=== PATIENT | female | born 1995 | race Caucasian/White ===

== ENCOUNTER → 2018-11-15 14:25 | Emergency (ER) | payer BC, MEDICAID ==
[~2018-11-15 14:25] MED LIST: Sucralfate SUSP 1 GM/10 ml 10 ML UDC PO ONE
--- NOTE | 2018-11-15 18:15 | ED ---
Complex/Multi-Sys Presentation - HPI Summary HPI Summary: Patient is a 23 y/o F presenting to ED with complaints of chest pain for the past three days. Chest pain is described as intense and is rated 8/10. She states that chest pain has been steady and is aggravated by eating/drinking. Chest pain is midsternal with radiation downwards towards epigastric area and wraps around her ribs. When pain is severe, patient notes some associated SOB. Vomiting is denied but she notes that she has not had a bowel movement in the past three days. Patient reports that this presentation of Sx is dissimilar to her GERD, stating that she has never had similar episodes of such pain. Patient is concerned that Sx have persisted. She additionally notes onset of sore throat today and reports minimal PO intake today. PMHx of GERD, hiatal hernia, fibromyalgia, PTSD, hypermobility syndrome. Patient had a cardiac workup done, with Dr. Altman in [place], echo appeared to be normal. FMHx of cardiac disease, grandmother had [place]. Patient is on omperazole 20 mg daily, gabapentin, doxazosin, and takes tumeric. Patient had an endoscopy and colonoscopy with Dr. Erin Neumann in [place] 11/03/17, patient was noted to have erythematous mucous in the antrum and was advised not to take NSAIDS. Patient notes that she had been prescribed meloxicam by a pain clinic that she does not follow with anymore. 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 PMHx of internal hemorrhoids is noted as well. Patient is on control and has been bleeding on and off for the past few months, which the patient relates to a recent control dosage change. PMHx of self-harm is noted as well, she denies SI/HI. On triage, pain is rated 8/10. Home medications and allergies are reviewed. Pt chose to come from [facility], because this hospital was recommended to her. She has an aunt in [place] as well. Pt drove herself here. 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 Pt carries a notebook binder with reports of all of her medical studies. - History Of Current Complaint Chief Complaint: EDChestPainROMI Hx Obtained From: Patient Onset/Duration: Lasting Days - three, Still Present Timing: Constant, Days - three Severity Currently: Severe Location: Pain At: - midsternal chest Aggravating Factor(s): eating and drinking Alleviating Factor(s): nothing Associated Signs And Symptoms: Positive: SOB, Chest Pain, Other - positive - constipation, sore throat, decreased PO intake; negative - SI/HI. Negative: Vomiting - Allergies/Home Medications Allergies/Adverse Reactions: Allergies Allergy/AdvReac Type Severity Reaction Status Date / Time amoxicillin [From Augmentin] Allergy Hives Verified 11/15/18 14:30 clavulanic acid Allergy Hives Verified 11/15/18 14:30 [From Augmentin] Home Medications: Home Medications Control 0 mg PO DAILY 11/15/18 [History Confirmed 11/15/18] Doxazosin TAB* 4 mg PO BEDTIME 11/15/18 [History Confirmed 11/15/18] Gabapentin CAP(*) 900 mg PO TID 11/15/18 [History Confirmed 11/15/18] LevoCETirizine TAB (NF) 15 mg PO DAILY 11/15/18 [History Confirmed 11/15/18] Melatonin 5 mg PO DAILY 11/15/18 [History Confirmed 11/15/18] Omeprazole 20 mg PO DAILY 11/15/18 [History Confirmed 11/15/18] Xanax TAB* 0.25 mg PO DAILY 11/15/18 [History Confirmed 11/15/18] Zanaflex TAB* 4 mg PO DAILY 11/15/18 [History Confirmed 11/15/18] traZODone TAB* 50 mg PO BID PRN 11/15/18 [History Confirmed 11/15/18] PMH/Surg Hx/FS Hx/Imm Hx Previously Healthy: No GI History: Reports: Hx Gastroesophageal Reflux Disease, Hx Hiatal Hernia History: Reports: Other Problems/Disorders - internal hemorrhoids Musculoskeletal History: Reports: Hx Fibromyalgia, Other Musculoskeletal History - hypermobility syndrome Psychiatric History: Reports: Hx Post Traumatic Stress Disorder, Other Psychiatric Issues/Disorders - Hx of self harm - Surgical History Surgery Procedure, Year, and Place: none Infectious Disease History: No Infectious Disease History: Denies: Traveled Outside the [place] in Last 30 Days - Family History Known Family History: Positive: Cardiac Disease - Social History Alcohol Use: None Substance Use Type: Reports: None Smoking Status (MU): Never Smoked Tobacco Review of Systems Constitutional: Negative Positive: Sore Throat Positive: Chest Pain Positive: Shortness Of Breath Gastrointestinal: Other - positive - decreased PO intake Positive: Other - constipation . Negative: Vomiting Positive: no symptoms reported Positive: Myalgia - always Skin: Negative Neurological: Negative Psychological: Other - negative - SI/HI Positive: Anxious All Other Systems Reviewed And Are Negative: Yes Physical Exam - Summary Physical Exam Summary: Appearance: Ill-appearing, moderate pain distress, well-nourished Skin: Warm, color reflects adequate perfusion, dry; multiple well-healed abdominal scars noted representing previous cutting episodes Head: Normal Head/Face inspection, atraumatic Eyes: Conjunctiva clear ENT: Normal inspection Neck: Supple, no nodes, no JVD Respiratory: Lungs clear, normal breath sounds, no respiratory distress Cardio: RRR, No murmur, pulses normal, brisk capillary refill Abdomen: Soft, nontender Bowel sounds: Present Musculoskeletal: Strength Intact/ROM intact, no calf tenderness, no edema. Psychological:anxious, fixated on her symptoms and disease Neuro: Alert, muscle tone normal, no focal deficit Triage Information Reviewed: Yes Vital Signs On Initial Exam: Initial Vitals Temp Pulse Resp BP Pulse Ox 98.1 F 81 16 126/81 97 11/15/18 14:29 11/15/18 14:29 11/15/18 14:29 11/15/18 14:29 11/15/18 14:29 Vital Signs Reviewed: Yes Diagnostics - Vital Signs Vital Signs Temp Pulse Resp BP Pulse Ox 11/15/18 16:13 98.0 F 76 18 138/75 98 11/15/18 14:29 98.1 F 81 16 126/81 97 - Laboratory Result Diagrams: 11/15/18 18:26 11/15/18 18:26 Lab Statement: Any lab studies that have been ordered have been reviewed, and results considered in the medical decision making process. - Radiology CXR Radiology Interpretation Completed By: ED Physician Summary of Radiographic Findings: CXR showed no acute process, pending official report. - CT CHEST/THORAX CTA CT Interpretation Completed By: Radiologist Summary of CT Findings: CTA CHEST/THORAX IMPRESSION: No acute findings. THIS REPORT WAS REVIEWED BY DR. LONDON. - EKG 1803 Cardiac Rate: NL - rate of 93 BPM EKG Rhythm: Sinus Rhythm ST Segment: Non-Specific Ectopy: None EKG Comparison: Other - no prior to compare Summary of EKG Findings: An EKG at 1803 showed sinus arrythmia with rate of 65 BPM, reveals nml AV/IV CT, nml QTc, and nml axis. No acute changes, no STEMI. ED MD has reviewed and interpreted this EKG. Re-Evaluation - Re-Evaluation First Eval Re-Evaluation Time: 19:42 Comment: Patient rates pain 6/10 at present, states when she attempted to swallow, she experienced FB sensation and points at sternal notch. Second Eval Re-Evaluation Time: 22:16 Change: Improved Comment: Patient is pain free at this time, results of CTA discussed. Patient is agreeable to discharge. Complex Multi-Symp Course/Dx Course Of Treatment: Patient is a 23 y/o F presenting to ED with complaints of chest pain for the past three days. Chest pain is described as intense and is rated 8/10. She states that chest pain has been steady and is aggravated by eating/drinking. Chest pain is midsternal with radiation downwards towards epigastric area and wraps around her ribs. When pain is severe, patient notes some associated SOB. Vomiting is denied but she notes that she has not had a bowel movement in the past three days. Patient reports that this presentation of Sx is dissimilar to her GERD, stating that she has never had similar episodes of such pain. Patient is concerned that Sx have persisted. She additionally notes onset of sore throat today and reports minimal PO intake today. PMHx of GERD, hiatal hernia, fibromyalgia, PTSD, hypermobility syndrome. Patient had a cardiac workup done, 10/19/[address] Altman in [place], echo appeared to be normal. FMHx of cardiac disease, grandmother had [place]. Patient is on omperazole 20 mg daily, gabapentin, doxazosin, and takes tumeric. Patient had an endoscopy and colonoscopy with Dr. Erin Neumann in [place] 11/03/17, patient was noted to have erythematous mucous in the antrum. Patient notes that she had been prescribed meloxicam by a pain clinic that she does not follow with anymore. 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 PMHx of internal hemorrhoids is noted as well. Patient is on control and has been bleeding on and off for the past few months, which the patient relates to a recent control dosage change. PMHx of self-harm is noted as well, she denies SI/HI. On physical exam, well- healed abdominal scars are noted. Labs showed D-dimer 245, CK-MB 0.5, TSH 1.4, first and second trop are negative, beta HCG < 0.60. UA showed 1+ ketones, 3+ blood, 3+ leukocyte esterase, 3+ WBC, 3+ RBC, squamous epith cells present, 1+ bacteria. Tox screen negative. CXR showed no acute process. An EKG at 1803 showed sinus arrythmia with rate of 65 BPM, reveals nml AV/IV CT, nml QTc, and nml axis. No acute changes, no STEMI. During ED course, patient received 1 gm Carafate, fluids, lidocaine 15 ml PO, toradol 30 mg IV, Pepcid 40 mg IV, and Maalox 30 ml PO. Due to elevated d-dimer and chest pain, SOB, pt had CTA chest , which was negative. CTA CHEST/THORAX IMPRESSION: No acute findings. 2216 - Patient is pain free at this time, results of CTA discussed. Patient is agreeable to discharge. - Diagnoses Differential Diagnoses/HQI/PQRI: Aspiration, Cardiac Ischemia, Metabolic Abnormality Provider Diagnoses: GERD (gastroesophageal reflux disease), Chest pain Discharge - Sign-Out/Discharge Documenting (check all that apply): Patient Departure - discharge Patient Received Moderate/Deep Sedation with Procedure: No - Discharge Plan Condition: Stable Disposition: HOME Prescriptions: Famotidine TAB* [Pepcid 20 MG TAB*] 40 mg PO DAILY #30 tab fentaNYL PATCH 12 MCG/HR * [Duragesic Patch 12 Mcg/Hr *] 12 mcg TRANSDERM Q72H # 4 patch MDD 0.33 patch Sucralfate TAB* [Carafate*] 1 gm PO BID #60 tab Patient Education Materials: Chest Pain (ED), Gastroesophageal Reflux Disease ( ED) Referrals: Sd Morrissey MD [Medical Doctor] - As Soon As Possible Tabby Robertson NP [Primary Care Provider] - 2 Days Additional Instructions: Dr. London feels that your diagnosis today is GERD, possibly esophageal spasm as the cause of your chest pain. While you in the emergency department you were given a GI cocktail with Maalox and viscous lidocaine. You were given ketorolac 30 mg IV. You were given sucralfate 1 g by mouth. Your also given famotidine 40 mg IV. You had some relief of your chest discomfort but not complete relief. Your labs were unremarkable except for your d-dimer which was slightly elevated. For this reason a CT angiogram of your chest was done. It did not show any abnormalities, meaning there is no pulmonary embolus. Your chest x-ray also was unremarkable. The reading on the chest x-ray is unofficial. We will contact you if there is any change in the reading. Dr. London strongly recommends that you stop meloxicam completely. Dr. London has given you a referral to our GI doctor, Dr. Morrissey. You should call him to arrange an appointment if you want your GI follow-up in [place]. Dr. London has sent 3 prescriptions to the [facility] pharmacy in [place]. You may try the fentanyl patch. The patch stays on for 3 days and then you replace it. She is also written for famotidine and sucralfate that would help with GERD. Return to the emergency room with any new or worsening symptoms. - Billing Disposition and Condition Condition: STABLE Disposition: Home - Attestation Statements Document Initiated by Adeola: Yes Documenting Adeola: MARGIE DEVLIN Provider For Whom Adeola is Documenting (Include Credential): MD Jennifer CRUZibe Attestation: MARGIE Pacheco, scribed for CRAIG LONDON MD on 11/17/18 at 0559. Scribe Documentation Reviewed: Yes Provider Attestation: The documentation as recorded by the MARGIE mcintosh accurately reflects the service I personally performed and the decisions made by me, CRAIG LONDON MD Status of Scribprince Document: Viewed
[2018-11-15 18:33] LABS: ABS Eosinophils 0.1 10^3/ul (0-0.6); ABS Lymphocytes 2.1 10^3/ul (1.0-4.8); ABS Monocytes 0.6 10^3/ul (0-0.8); ABS Neutrophils 7.3 10^3/ul (1.5-7.7); Eosinophil % 0.6 %; Hematocrit 39 % (35-47); Hemoglobin 13.3 g/dL (12.0-16.0); Lymphocyte % 20.7 %; Mean Corpuscular HGB Conc 34 g/dL (31-36); Mean Corpuscular Hemoglobin 31 pg (27-31); Mean Corpuscular Volume 90 fL (80-97); Mean Platelet Volume 8.2 fL (7.4-10.4); Platelet Count 224 10^3/uL (150-450); Red Blood Count 4.36 10^6 /uL (3.70-4.87); Red Cell Distribution Width 14 % (10-15); White Blood Count 10.1 10^3/uL (3.5-10.8)
[2018-11-15 18:42] LABS: Activated Partial Thrombo Time 33.8 seconds (26.0-38.0); INR 0.95 (0.82-1.09)
[2018-11-15 18:51] LABS: Albumin 4.4 g/dL (3.2-5.2); Albumin/Globulin Ratio 1.4 (1-3); BUN/Creatinine Ratio 11.8 (8-20); Calcium 9.6 mg/dL (8.6-10.3); EGFR African American 127.6 (>60); EGFR Non-African American 105.4 (>60); Globulin 3.2 g/dL (2-4); Potassium 3.6 mmol/L (3.5-5.0); Total Bilirubin 0.7 mg/dL (0.2-1.0); Total Protein 7.6 g/dL (6.4-8.9)
[2018-11-15 18:52] LABS: Creatine Kinase 68 U/L (10-223)
[2018-11-15 18:54] LABS: Urine Appearance Cloudy; Urine Bacteria 1+ (Absent); Urine Bilirubin Negative (Negative); Urine Blood 3+ (Negative); Urine Color Yellow; Urine Glucose Negative (Negative); Urine Ketones 1+ (Negative); Urine Nitrite Negative (Negative); Urine Protein Negative (Negative); Urine Red Blood Cell 3+(>10/hpf) (Absent); Urine Specific Gravity 1.012 (1.010-1.030); Urine Squamous Epithelial Cell Present (Absent); Urine Urobilinogen Negative (Negative); Urine White Blood Cell 3+(>20/hpf) (Absent)
[2018-11-15] MEDS: Lidocaine 2% VISCOUS* 15 ML UDC PO ONE (18:54)
[2018-11-15] MEDS: NS 0.9% 1000 ML** 1,000 ML IV.FLUID IV ONE (18:55)
[2018-11-15] MEDS: Al Hydrox/Mg Hydrox/Simet LIQ* 30 ML UDC PO ONE (18:55)
[2018-11-15] MEDS: Famotidine IV* 10 MG/ML 2 ML (20 mg) IV SLOW PU ONE (18:56)
[2018-11-15 18:58] LABS: CKMB ng/mL 0.5 ng/mL (0.6-6.3)
[2018-11-15] MEDS: Ketorolac INJ* 30 MG/ML 1 ML VIAL IV PUSH ONE (18:58)
[2018-11-15 19:00] LABS: HCG Pregnancy < 0.60 mIU/mL
[2018-11-15 19:22] LABS: Urine Benzodiazepine Screen None Detected (None Detect)
[2018-11-15 19:23] LABS: Urine Opiates Screen None Detected (None Detect)
[2018-11-15] MEDS: Sucralfate TAB* 1 GM PO ONE (19:38)
[2018-11-15] MEDS: Iohexol 350* (CONTRAST) 500 ML MDV IV ONE (20:51)
[2018-11-15 22:46] VITALS: BP 121/73
== END | disposition home or self-care (01) ==
LOC: ED 14:25
DX: R07.9 Chest pain, unspecified (principal); K21.9 Gastro-esophageal reflux disease without esophagitis; M79.7 Fibromyalgia; F43.10 Post-traumatic stress disorder, unspecified; Z79.899 Other long term (current) drug therapy
CPT/HCPCS: 36415; 71045; 71275; 80053; 80307; 81003; 81015; 82550; 82553; 83605; 84443; 84484; 84702; 85025; 85379; 85610; 85730; 87086; 93005; 96361; 96374; 96375; 99283; A9270-GY; J1885; Q9967